=== PATIENT | female | born 1990 | race Caucasian/White ===

== ENCOUNTER → 2017-10-05 | Outpatient (CLI) | payer OTHER ==
--- NOTE | 2017-10-05 08:39 | US ---
EXAMINATION TYPE: Transabdominal DATE OF EXAM: 05/17/17 COMPARISON: NONE CLINICAL HISTORY: [id number] confirm dates. EXAM PERFORMED: Transabdominal (TA) EXAM MEASUREMENTS: GESTATIONAL AGE / DATING Physician Established: Not yet established Dates by LMP: (9 weeks/2 days) EDC: 05/08/18 Dates by First Scan: No previous this is first scan Dates by Current Scan for: (7 weeks/4 days) EDC: 05/20/18 MATERNAL ANATOMY Uterus: 9.3 x 6.4 x 8.0cm Right Ovary: 2.3 x 1.9 x 1.3cm Left Ovary: 3.4 x 2.7 x 1.5cm Post CDS / Adnexa: wnl Presence of free fluid: no GESTATION / SURVEY CRL: 1.3cm (7 weeks/4 days) Yolk Sac (normal less than 6mm): 2mm Heart Rate: 171. bpm Rhythm: Normal IUP: Viable IUP Date of LMP: 08/01/18 Beta HcG (if available): Not available at this time IMPRESSION: Single viable intrauterine corresponding to ultrasound age 7 weeks 4 days with estimated da te of delivery 05/20/2018 by today's exam
== END | disposition home or self-care (01) ==
LOC: RADUSWWP 07:41
PROVIDERS: ATTEND Obstetrics & Gynecology
DX: Z36.9 Encounter for antenatal screening, unspecified (principal); Z3A.01 Less than 8 weeks gestation of pregnancy
CPT/HCPCS: 76801

== ENCOUNTER → 2017-10-20 | Outpatient (CLI) | payer OTHER ==
[2017-10-21 04:13] LABS: Cardiolipin Ab IgG Interp NEGATIVE (NEGATIVE); Cardiolipin Ab IgM Interp NEGATIVE (NEGATIVE); Cardiolipin IgA Antibody <0.5 U/mL; Cardiolipin IgM Antibody 0.3 U/mL
[2017-10-21 13:27] LABS: APTT 37 Sec(s) (<43); Dilute Russell Viper Venom 43 Sec(s) (<44)
== END | disposition home or self-care (01) ==
LOC: LABWHC1 14:44
PROVIDERS: ATTEND Obstetrics & Gynecology Maternal & Fetal Medicine
DX: Z39.2 Encounter for routine postpartum follow-up (principal)
CPT/HCPCS: 36415; 85613; 85730; 86146; 86147